=== PATIENT | male | born 1975 | race Caucasian/White ===

== ENCOUNTER 2017-02-01 00:22 | Inpatient (IN) | payer BC ==
[~2017-02-01] VITALS: Ht 172.7 cm; Wt 110.7 kg
[2017-02-01] VITALS (7 sets, daily range): BP systolic 82–150; BP diastolic 50–90
--- NOTE | ~2017-02-01 | WRIGHTHP ---
[place], [place] PATIENT HISTORY AND PHYSICAL EXAM [id number] UNIT #: [id number] ROOM: 511 DOCTOR: MOSES TILLMAN DO BIRTHDATE: [birth year] DOS: PRIMARY CARE PHYSICIAN: Dr. Molly Zepeda. The patient was seen and evaluated with the resident on 02/01/2017. Please see the resident's note for further details. ASSESSMENT: 1. Alcohol intoxication. 2. Hypotension. This was most likely caused from a recently started new blood pressure medicine which was valsartan 160 mg in addition to mild dehydration. 3. Syncope secondary to hypotension. 4. Leukocytosis. 5. History of hypertension. 6. Hyperlipidemia. 7. Tobacco abuse. PLAN: The patient feels completely back to normal. His hypotension has resolved. He will be discharged today. I advised him to stop the valsartan because he had only taken a couple of doses of this. I will be starting him on Coreg. He is to follow up with his primary care physician as soon as possible. MOSES TILLMAN DO CM:HISPHYS:PATIENT HISTORY AND PHYSICAL EXAMINATION [id number] MOSES TILLMAN DO 02/01/17 165 interface
[~2017-02-01 00:22] MED LIST: DAYPRO600 M1 PO; SKELAXIN800 MG PO
[2017-02-01] MEDS ORDERED: VALSARTAN160 MG PO (00:39)
[2017-02-01] MEDS ORDERED: IBU800 M1 PO (00:40)
[2017-02-01 00:58] LABS: HEMATOCRIT 41.2 % (42.0-52.0); HEMOGLOBIN 14.2 g/dl (14.0-18.0); MEAN CELL VOLUME 87.1 fl (80.0-94.0); MEAN CORPUSCULAR HGB CONC 34.5 g/dl (33.0-37.0); PLATELET COUNT AUTOMATED 345 10*3/uL (130-400); RED BLOOD COUNT 4.73 10*6/uL (4.50-5.90); RED CELL DISTRI WIDTH 13.2 % (0-14.5); WHITE BLOOD COUNT 15.9 10*3/uL (4.8-10.8)
[2017-02-01 01:15] LABS: ALBUMIN 3.2 gm/dl (3.1-4.5); ALKALINE PHOSPHATASE 60 U/L (45-117); BILIRUBIN, TOTAL 0.2 mg/dl (0.2-1.0); BUN 10 mg/dl (7-24); CARBON DIOXIDE 17 mmol/L (21-32); CHLORIDE 109 mmol/L (98-107); EST GLOM FILT AFRICAN AMERICAN > 60 ml/min; GLUCOSE 107 mg/dL (65-99); POTASSIUM 3.3 mmol/L (3.5-5.1); SGOT/AST 15 IU/L (3-35); SGPT/ALT 30 U/L (12-78); SODIUM 140 mmol/L (136-145); TOTAL PROTEIN 6.6 gm/dL (6.4-8.2)
[2017-02-01 01:18] LABS: EOSINOPHIL # 0.5 10*3/uL (0-0.4); EOSINOPHILS 3 % (1-4); METAMYELOCYTES 1 % (0-0); MONOCYTE # 1.6 10*3/uL (0.1-1.0); NEUTROPHIL # 7.6 10*3/uL (2.3-7.9); NEUTROPHILS 48 % (47-73); PLATELET SUFFICIENCY NORMAL (NORMAL); TOTAL CELLS COUNTED 100 #CELLS
[2017-02-01 01:19] LABS: TROPONIN I < 0.015 ng/ml (<0.045)
[2017-02-01 06:39] LABS: BILIRUBIN NEGATIVE (NEGATIVE); BLOOD NEGATIVE (NEGATIVE); CLARITY CLEAR (CLEAR); COLOR YELLOW (YELLOW); GLUCOSE NEGATIVE (NEGATIVE); KETONE NEGATIVE (NEGATIVE); LEUKO ESTERASE NEGATIVE (NEGATIVE); NITRITE NEGATIVE (NEGATIVE); PROTEIN NEGATIVE (NEGATIVE); SPECIFIC GRAVITY <= 1.005 (1.005-1.030); UROBILINOGEN 0.2 E.U./dl (0.2-1.0)
[2017-02-01 06:40] LABS: BASO # 0.1 10*3/uL (0.0-0.1); BASO % 0.6 % (0.0-1.0); EOS # 0.1 10*3/uL (0.0-0.4); EOS % 0.7 % (1.0-4.0); HEMATOCRIT 40.8 % (42.0-52.0); HEMOGLOBIN 14.1 g/dl (14.0-18.0); IG # 0.2 10*3/uL (0.0-0.1); MEAN CELL VOLUME 87.9 fl (80.0-94.0); MEAN CORPUSCULAR HGB 30.4 pg (27.0-31.0); MEAN CORPUSCULAR HGB CONC 34.6 g/dl (33.0-37.0); MEAN PLATELET VOLUME 11.2 fl (9.6-12.3); MONO # 0.9 10*3/uL (0.1-1.0); NEUT # 9.1 10*3/uL (2.3-7.9); NEUT % 63.2 % (47.0-73.0); PLATELET COUNT AUTOMATED 361 10*3/uL (130-400); RED BLOOD COUNT 4.64 10*6/uL (4.50-5.90); RED CELL DISTRI WIDTH 13.2 % (0-14.5); WHITE BLOOD COUNT 14.4 10*3/uL (4.8-10.8)
[2017-02-01 06:46] LABS: URINE AMPHETAMINES < 1000 (1000ng/ml); URINE BARBITURATES < 200 (200ng/ml); URINE COCAINE < 300 (300ng/ml)
[2017-02-01 06:55] LABS: CKMB 0.9 ng/ml (0.5-3.6); CPK 72 U/L (39-308)
[2017-02-01 07:04] LABS: TROPONIN I < 0.015 ng/ml (<0.045)
[2017-02-01 07:08] LABS: BUN 9 mg/dl (7-24); CARBON DIOXIDE 22 mmol/L (21-32); CHLORIDE 109 mmol/L (98-107); CHOLESTEROL 167 mg/dL (<200); EST GLOM FILT AFRICAN AMERICAN > 60 ml/min; FREE T4 1.16 ng/dl (0.76-1.46); GLUCOSE 96 mg/dL (65-99); HDL CHOLESTEROL 38 mg/dl (40-60); LDL CHOLESTEROL 79 mg/dL (9-159); PHOSPHOROUS 3.2 mg/dL (2.5-4.9); POTASSIUM 3.9 mmol/L (3.5-5.1); SODIUM 138 mmol/L (136-145); TRIGLYCERIDES 250 mg/dl (<150); VLDL CHOLESTEROL 50 mg/dL (6-40)
[2017-02-01 07:14] LABS: THYROID STIM HORMONE (HS) 0.974 uIU/ml (0.358-4.75)
[2017-02-01 07:43] LABS: RBC 0-2 rbc/hpf (0-2); URINE REFLEX COMMENT NO (NO); WBC 0-2 wbc/hpf (0-5)
[2017-02-01 08:18] LABS: HEMOGLOBIN A1c 5.6 % (4.8-5.6)
[2017-02-01 12:44] LABS: CPK 75 U/L (39-308)
[2017-02-01 12:45] LABS: CKMB 0.9 ng/ml (0.5-3.6)
[2017-02-01 12:46] LABS: TROPONIN I < 0.015 ng/ml (<0.045)
[2017-02-01] MEDS ORDERED: COREG3.125 MG PO (13:57)
== END 2017-02-01 15:15 | disposition home or self-care (01) | DRG 315 ==
LOC: ED 00:22 → EDHOLD 03:27 → 5E 03:33
PROVIDERS: Emergency Medicine; Hospitalist; Student in an Organized Health Care Education/Training Program
DX: I95.9 Hypotension, unspecified (principal); R65.10 Systemic inflammatory response syndrome (SIRS) of non-infectious origin without acute organ dysfunction; F10.129 Alcohol abuse with intoxication, unspecified; I10 Essential (primary) hypertension; F17.210 Nicotine dependence, cigarettes, uncomplicated; R06.82 Tachypnea, not elsewhere classified; E87.6 Hypokalemia; E86.0 Dehydration; E78.5 Hyperlipidemia, unspecified; Z82.49 Family history of ischemic heart disease and other diseases of the circulatory system; Z79.899 Other long term (current) drug therapy; Z79.1 Long term (current) use of non-steroidal anti-inflammatories (NSAID)

== ENCOUNTER 2017-12-29 07:02 | Inpatient (IN) | payer BC ==
[~2017-12-29] VITALS: Ht 170.1 cm; Wt 108.1 kg
--- NOTE | ~2017-12-29 | PR ---
[place], [place] PROGRESS NOTE NAME: BRUCE NATION UNIT #: [id number] ROOM: 426 DOCTOR: ABBIE DUMONT MD BIRTHDATE: [birth year] DOS: 12/30/2017 REASON FOR VISIT: Chest pain and hypertension. HISTORY OF PRESENT ILLNESS: The patient denies any chest pain, shortness of breath. No palpitations or dizziness. No fever or chills. No nausea, vomiting. No neurologic symptoms. REVIEW OF SYSTEMS: Review of the 8 systems negative except as mentioned above. RHYTHM STRIPS: The patient in sinus rhythm. PHYSICAL EXAMINATION: VITAL SIGNS: Blood pressure 144/106, pulse 80, respiratory rate 16. GENERAL: Alert, comfortable, in no acute distress. HEENT: Pupils are round and equal. No jaundice. NECK: Supple, no distended neck veins, no carotid bruit. CHEST: Symmetrical, nontender. LUNGS: Clear to auscultation bilaterally. HEART: Regular rhythm, no S3. ABDOMEN: Nontender. Bowel sounds normal. EXTREMITIES: Showed no edema. Distal pulses palpable. SKIN: Warm and dry. No cyanosis, no clubbing. NEUROLOGIC: The patient is alert, oriented. No focal neurologic deficit. Medications and labs reviewed. IMPRESSION: 1. Chest pain, myocardial infarction ruled out. 2. Hypertension, needs better control. 3. Diabetes type 2. 4. Non-morbid obesity. RECOMMENDATIONS: 1. The patient is for exercise nuclear stress test today. 2. Adjust medication for optimal blood pressure control. 3. Factor modification was discussed. 4. If the stress test normal and the blood pressure is controlled, he can be discharged home later today. [place], [place] PROGRESS NOTE NAME: BRUCE NATION UNIT #: [id number] ROOM: 426 DOCTOR: ABBIE DUMONT MD BIRTHDATE: [birth year] ABBIE DUMONT MD CM:PNTRANS [id number] ABBIE DUMONT MD 12/31/17 0956 interface
--- NOTE | ~2017-12-29 | ST ---
[place], [place] EXERCISE STRESS TEST REPORT NAME: [facility] [id number] UNIT #: [id number] ROOM: 426 DOCTOR: JULIA WHIPPLE,ABBIE BIRTHDATE: [birth year] DOS: 12/30/2017 REASON FOR TEST: Chest pain. PHYSICAL EXAMINATION NECK: Supple. LUNGS: Clear anteriorly. HEART: Regular rhythm. PROTOCOL: Volodymyr protocol. Total stress time 8 minutes 30 seconds. Maximum heart rate 158, which is 88% target heart rate. Peak blood pressure 238/98, hypertensive response. Total mets 7.8 mets. Vick treadmill score of +8. SYMPTOMS: The patient was chest pain free. ELECTROCARDIOGRAM: Resting EKG showed sinus rhythm. Stress EKG showed no ischemia, no arrhythmias. CONCLUSION: Clinically, the patient is chest pain free and EKG showed no ischemia. POST-STRESS COMPLICATIONS: None. ABBIE DUMONT MD CM:STRESS:EXERCISE STRESS TEST REPORT [id number] ABBIE DUMONT MD
--- NOTE | ~2017-12-29 | CON ---
[place], [place] REPORT OF CONSULTATION [id number] UNIT #: [id number] ROOM: 426 DOCTOR: ABBIE DUMONT MD BIRTHDATE: [birth year] DOS: 12/29/2017 REASON FOR CONSULTATION: Chest pain. HISTORY OF PRESENT ILLNESS: The patient is a 42-year-old gentleman with history of hypertension, obesity and tobacco smoking, who came to the Emergency Room for chest pain. This pain came at rest while he was sitting and watching TV. He described this as a pressure-like sensation in the midsternal area and severity 10/10. He felt a little bit dizzy, diaphoretic as well as was short of breath at that time. He also has some nausea along with this pain. This pain has no radiation, and he did have vomiting x 1 at that time of the pain which resolved after 1 minute, but he feels like more tired and also noted to have some headache. Denies any palpitations, fever, chills or cough. No diarrhea. No bladder or bowel symptoms, but he did have some tingling sensation in his hands and feet. He is active at home as well as at work. Denies any exertional chest pains. He was admitted to the hospital and treated like upper GI symptoms and a Cardiology consult for any further recommendations. At the time of my examination, the patient is alert, comfortable. Denies any chest pain, palpitations. No shortness of breath. No dizziness. REVIEW OF SYSTEMS: Review of the 10 systems negative except as mentioned above. PAST MEDICAL HISTORY: 1. Hypertension. 2. Nonmorbid obesity. 3. Elevated triglycerides. PAST SURGICAL HISTORY: History of knee surgery and wrist surgery. SOCIAL HISTORY: The patient drinks alcohol socially, smokes about one-fourth pack a day. ALLERGIES: No known drug allergies. HOME MEDICATIONS: Reviewed. FAMILY HISTORY: Father, mother, sister have hypertension. PHYSICAL EXAMINATION: VITAL SIGNS: Blood pressure 164/108, pulse 82, respiratory rate 18, weight 108 kilos with a BMI of 37. GENERAL: Alert, comfortable, in no acute distress. HEENT: Pupils round and equal. No jaundice. Tongue was moist and pharynx clear. NECK: Supple. No distended neck veins, no carotid bruit. CHEST: Symmetrical, nontender. LUNGS: Clear to auscultation bilaterally. HEART: Regular rhythm. No S3, no palpable thrills. ABDOMEN: Obese, nontender. Bowel sounds normal. EXTREMITIES: Showed no edema. Distal pulses are palpable. [place], [place] REPORT OF CONSULTATION NAME: BRUCE NATION UNIT #: [id number] ROOM: 426 DOCTOR: JULIA WHIPPLE,ABBIE BIRTHDATE: [birth year] SKIN: Warm and dry. No cyanosis, no clubbing. NEUROLOGIC: The patient is alert, oriented. No focal neurologic deficit. RECTAL: Deferred. GENITOURINARY: Deferred. REVIEW OF DIAGNOSTIC TESTS: EKG showed normal sinus rhythm with nondiagnostic ST-T changes anteriorly. His labs were reviewed including CBC, chemistry, cardiac enzymes. Cardiac troponins are negative x 3. Creatinine is 1.0, potassium 4.0, hemoglobin 16.3. IMPRESSION: 1. Chest pain, myocardial infarction ruled out. 2. Hypertension. 3. Nonmorbid obesity. 4. Tobacco smoking. RECOMMENDATIONS: 1. Continue to watch his heart rate and blood pressures. 2. Discussed with the patient's risk factor modification, especially to quit smoking and also diet, exercise and weight loss. 3. Due to symptoms and coronary artery disease risk factors, I would recommend exercise nuclear stress test. The above treatment plan was discussed with the patient and all questions were answered. ABBIE DUMONT MD CM:CONSTR:REPORT OF CONSULTATION [id number] 12/30/17 1147 interface
[~2017-12-29 07:02] MED LIST changes: +COREG3.125 MG PO; +IBU800 M1 PO; +VALSARTAN160 MG PO
[2017-12-29 07:03] VITALS: BP 154/104
[2017-12-29] MEDS ORDERED: HYDR25T PO (07:09)
[2017-12-29] MEDS ORDERED: ZESTRIL20 MG PO (07:09)
[2017-12-29 07:20] LABS: BASO # 0.1 10*3/uL (0.0-0.1); EOS # 0.3 10*3/uL (0.0-0.4); EOS % 2.7 % (1.0-4.0); HEMATOCRIT 47.2 % (42.0-52.0); HEMOGLOBIN 16.3 g/dl (14.0-18.0); LYMPH # 3.6 10*3/uL (1.3-4.4); LYMPH % 33.2 % (27.0-41.0); MEAN CELL VOLUME 88.4 fl (80.0-94.0); MEAN CORPUSCULAR HGB 30.5 pg (27.0-31.0); MEAN CORPUSCULAR HGB CONC 34.5 g/dl (33.0-37.0); MEAN PLATELET VOLUME 11.4 fl (9.6-12.3); MONO # 0.9 10*3/uL (0.1-1.0); MONO % 8.6 % (3.0-9.0); NEUT # 5.8 10*3/uL (2.3-7.9); NEUT % 53.8 % (47.0-73.0); PLATELET COUNT AUTOMATED 267 10*3/uL (130-400); RED BLOOD COUNT 5.34 10*6/uL (4.50-5.90); WHITE BLOOD COUNT 10.8 10*3/uL (4.8-10.8)
[2017-12-29 07:33] LABS: ACT PARTIAL THROMBO TIME 29.5 SECONDS (19.5-32.1)
[2017-12-29 07:35] LABS: ALBUMIN 3.9 gm/dl (3.1-4.5); ALKALINE PHOSPHATASE 73 U/L (45-117); BUN 13 mg/dl (7-24); CHLORIDE 104 mmol/L (98-107); CREATININE 1.05 mg/dL (0.70-1.30); SGOT/AST 29 IU/L (3-35); SGPT/ALT 62 U/L (12-78); SODIUM 138 mmol/L (136-145); TOTAL PROTEIN 7.3 gm/dL (6.4-8.2)
[2017-12-29 07:40] LABS: TROPONIN I < 0.015 ng/ml (<0.045)
[2017-12-29 08:07] VITALS: BP 141/91
[2017-12-29 09:00] VITALS: BP 164/108
[2017-12-29 09:12] VITALS: BP 154/104
[2017-12-29 16:00] VITALS: BP 164/96
[2017-12-29 20:00] VITALS: BP 148/90
[2017-12-30] VITALS: BP 139/79
[2017-12-30 06:56] LABS: BASO # 0.1 10*3/uL (0.0-0.1); EOS # 0.3 10*3/uL (0.0-0.4); EOS % 3.8 % (1.0-4.0); HEMATOCRIT 49.3 % (42.0-52.0); HEMOGLOBIN 16.8 g/dl (14.0-18.0); LYMPH # 3.1 10*3/uL (1.3-4.4); LYMPH % 35.2 % (27.0-41.0); MEAN CELL VOLUME 89.5 fl (80.0-94.0); MEAN CORPUSCULAR HGB 30.5 pg (27.0-31.0); MEAN CORPUSCULAR HGB CONC 34.1 g/dl (33.0-37.0); MEAN PLATELET VOLUME 11.1 fl (9.6-12.3); MONO # 0.6 10*3/uL (0.1-1.0); MONO % 6.6 % (3.0-9.0); NEUT # 4.6 10*3/uL (2.3-7.9); NEUT % 52.8 % (47.0-73.0); PLATELET COUNT AUTOMATED 256 10*3/uL (130-400); RED BLOOD COUNT 5.51 10*6/uL (4.50-5.90); RED CELL DISTRI WIDTH 12.8 % (0-14.5); WHITE BLOOD COUNT 8.8 10*3/uL (4.8-10.8)
[2017-12-30 07:30] LABS: CHLORIDE 101 mmol/L (98-107); CHOLESTEROL 245 mg/dL (<200); CREATININE 1.04 mg/dL (0.70-1.30); HDL CHOLESTEROL 42 mg/dl (40-60); LDL CHOLESTEROL 157 mg/dL (9-159); PHOSPHOROUS 3.6 mg/dL (2.5-4.9); POTASSIUM 4.3 mmol/L (3.5-5.1); SODIUM 136 mmol/L (136-145); TRIGLYCERIDES 228 mg/dl (<150); VLDL CHOLESTEROL 46 mg/dL (6-40)
[2017-12-30 07:44] LABS: BUN 16 mg/dl (7-24); FREE T4 1.03 ng/dl (0.76-1.46)
[2017-12-30 08:00] VITALS: BP 180/102
[2017-12-30 08:04] LABS: VITAMIN D, 25-HYDROXY 10.3 ng/mL (30-100)
[2017-12-30 16:00] VITALS: BP 146/110
[2017-12-30 20:00] VITALS: BP 161/100
[2017-12-31] VITALS: BP 138/82
[2017-12-31 06:31] VITALS: BP 158/90
[2017-12-31 08:00] VITALS: BP 147/92
[2017-12-31 12:00] VITALS: BP 149/94
[2017-12-31] MEDS ORDERED: VITAMIN D50000 UNIT PO (13:04)
[2017-12-31] MEDS ORDERED: NEURONTIN300 MG PO (14:21)
== END 2017-12-31 14:45 | disposition home or self-care (01) | DRG 880 ==
LOC: ED 07:02 → EDHOLD 08:47 → 4E 08:47
PROVIDERS: Student in an Organized Health Care Education/Training Program
PROC: 4A02XM4 Measurement of Cardiac Total Activity, External Approach (ICD-10-PCS; principal; 2017-12-30)
DX: F41.9 Anxiety disorder, unspecified (principal); E11.65 Type 2 diabetes mellitus with hyperglycemia; I16.1 Hypertensive emergency; G62.9 Polyneuropathy, unspecified; E55.9 Vitamin D deficiency, unspecified; E66.9 Obesity, unspecified; E78.5 Hyperlipidemia, unspecified; E78.00 Pure hypercholesterolemia, unspecified; I10 Essential (primary) hypertension; Z72.0 Tobacco use; Z71.6 Tobacco abuse counseling; Z72.89 Other problems related to lifestyle; Z82.49 Family history of ischemic heart disease and other diseases of the circulatory system; Z68.37 Body mass index [BMI] 37.0-37.9, adult